=== PATIENT | female | born 1945 | race Caucasian/White ===

== ENCOUNTER 2018-02-16 12:30 | Inpatient (IN) | payer MEDICARE, BC ==
[~2018-02-16] VITALS: Ht 162.6 cm; Wt 102.7 kg
[2018-02-16 13:56] LABS: BASOPHILS # (AUTO) 0.02 x10^3/uL (0-0.1); BASOPHILS % (AUTO) 0 % (0-1); EOSINOPHILS % (AUTO) 0 % (1-7); LYMPHOCYTES # (AUTO) 0.63 x10^3/uL (1-3.4); LYMPHOCYTES % (AUTO) 4 % (22-44); MD NO; MEAN CORPUSCULAR HEMOGLOBIN 35.3 pg (27.0-34.8); MEAN CORPUSCULAR HGB CONC 32.7 g/dL (32.4-35.8); MEAN CORPUSCULAR VOLUME 107.7 fL (80-100); MEAN PLATELET VOLUME 9.8 fL (7.4-10.4); MONOCYTES # (AUTO) 0.82 x10^3/uL (0.2-0.8); MONOCYTES % (AUTO) 5 % (2-9); NEUTROPHILS # (AUTO) 14.37 x10^3/uL (1.8-6.8); NEUTROPHILS % (AUTO) 91 % (42-75); PLATELET COUNT 225 x10^3/uL (130-400); RED BLOOD COUNT 2.44 x10^6/uL (3.82-5.3); RED CELL DISTRIBUTION WIDTH 18.8 % (9.6-15.2)
[2018-02-16] MEDS ORDERED: SODIUM CHLORIDE 0.9%, 250ML IVBOLUS ONE (14:00)
[2018-02-16] MEDS ORDERED: VANCOMYCIN PER PHARMACY MC ONE (14:00)
[2018-02-16] MEDS ORDERED: PIPERACILLIN/TAZO/PMX 3.375GM 50 ML IVPB ONE (14:00)
[2018-02-16 14:01] LABS: ALBUMIN 3.5 g/dL (3.4-5.0); ANION GAP 22 mmol/L (5-15); CALCIUM 7.1 mg/dL (8.5-10.1); CHLORIDE 92 mmol/L (98-107)
[2018-02-16 14:10] LABS: TROPONIN I 0.086 ng/mL (0.000-0.045)
[2018-02-16] MEDS ORDERED: PIPERACILLIN/TAZO/PMX 3.375GM 50 ML ONE (14:16)
[2018-02-16] MEDS ORDERED: VANCOMYCIN 1,500 MG in SODIUM CHLORIDE 0.9% 250 ML IV ONE (14:30)
[2018-02-16] MEDS ORDERED: SODIUM BICARBONATE 8.4% 150 MEQ in DEXTROSE 5% 1,000 ML IV SCH (15:00)
[2018-02-16] MEDS ORDERED: FERR325T18 PO (15:11)
[2018-02-16] MEDS ORDERED: ASPI-496 PO (15:11)
[2018-02-16] MEDS ORDERED: GABA-827 PO (15:12)
[2018-02-16] MEDS ORDERED: MIDO5TAB PO (15:13)
[2018-02-16] MEDS ORDERED: MV,F1CAP PO (15:14)
[2018-02-16] MEDS ORDERED: SEVE2.4P PO (15:15)
[2018-02-16] MEDS ORDERED: CETI10CA PO (15:16)
[2018-02-16] MEDS ORDERED: CALC300T5 PO (15:16)
[2018-02-16] MEDS ORDERED: HYDROcodone/APAP 5/325 TABLET PO PRN (16:30)
[2018-02-16] MEDS ORDERED: HEPARIN 5,000 UNITS/ML, 1ML SQ SCH (16:30)
[2018-02-16] MEDS ORDERED: ACETAMINOPHEN 325 MG TABLET PO PRN (16:30)
[2018-02-16] MEDS ORDERED: ONDANSETRON 2MG/ML, 2ML IVPush PRN (16:30)
[2018-02-16] MEDS ORDERED: hydrALAzine 20 MG/ML, 1ML IVPush PRN (16:30)
[2018-02-16] MEDS ORDERED: morphine SULFATE 10 MG/ML, 1ML IVPush PRN (16:30)
[2018-02-16] MEDS ORDERED: CALCIUM ACETATE 667 MG CAPSULE PO SCH (16:30)
[2018-02-16 16:55] VITALS: BP 95/60
[2018-02-16] MEDS ORDERED: CEFTRIAXONE PMX 1GM/50ML 50 ML IV SCH (17:00)
[2018-02-16] MEDS ORDERED: FERROUS SULFATE 325 MG TABLET PO SCH (17:00)
[2018-02-16] MEDS ORDERED: INSULIN LISPRO 100 UNITS/ML, PEN SQ-INSULIN SCH (17:30)
[2018-02-16] MEDS ORDERED: AZITHROMYCIN 500 MG in SODIUM CHLORIDE 0.9% 250 ML IV SCH (17:30)
[2018-02-16 17:36] LABS: INTERNATIONAL NORMALIZED RATIO 6.3 (0.93-1.1)
[2018-02-16 17:38] LABS: PROTHROMBIN TIME 62.6 Seconds (9.6-11.5)
[2018-02-16] MEDS ORDERED: WARFARIN 5 MG TABLET PO-COUM SCH (18:00)
[2018-02-16] MEDS ORDERED: GABAPENTIN 100 MG CAPSULE PO SCH (21:00)
[2018-02-17] MEDS ORDERED: DARBEPOETIN 60 MCG/ML SQ SCH (17:00)
[2018-02-18] MEDS ORDERED: MIDODRINE 5 MG TABLET PO SCH (09:00)
== END 2018-02-17 00:40 | disposition expired | DRG 871 ==
LOC: ED 14:31 → EDIP 14:32 → SUATTDRO 14:48 → ED 14:56 → 4WST 16:30
PROVIDERS: ADMIT Hospitalist; ATTEND Hospitalist
DX: A41.9 Sepsis, unspecified organism (principal); N18.6 End stage renal disease; J18.1 Lobar pneumonia, unspecified organism; J96.91 Respiratory failure, unspecified with hypoxia; R65.21 Severe sepsis with septic shock; E87.1 Hypo-osmolality and hyponatremia; E87.2 Acidosis; D63.1 Anemia in chronic kidney disease; E11.22 Type 2 diabetes mellitus with diabetic chronic kidney disease; E66.01 Morbid (severe) obesity due to excess calories; E87.5 Hyperkalemia; E87.70 Fluid overload, unspecified; H54.8 Legal blindness, as defined in USA; I95.89 Other hypotension; Y95 Nosocomial condition; Z66 Do not resuscitate; Z86.718 Personal history of other venous thrombosis and embolism; Z87.891 Personal history of nicotine dependence; Z99.2 Dependence on renal dialysis; Z68.38 Body mass index [BMI] 38.0-38.9, adult
CPT/HCPCS: 36415; 71045; 80048; 82040; 82962; 83605; 83880; 84145; 84443; 84484; 85025; 85610; 87040; 93005; 96361; 96365; 99291; G0378; J0456; J2543; J3370; J7070; J7050